=== PATIENT | female | born 1950 | race Caucasian/White ===

== ENCOUNTER 2018-03-24 08:22 | Day surgery (SDC) | payer MEDICARE, MEDICAID ==
[~2018-03-24 08:22] MED LIST: Lactated Ringers 1,000 ML IV SCH; Sodium Chloride 0.9% 5 ML Syringe FLUSH PRN
[2018-03-24] MEDS ORDERED: Gatifloxacin 0.5% Ophth Soln 2.5 ML Bot EYELF SCH (08:30)
[2018-03-24] MEDS: Cyclopentolate 1% Opth Soln 2 ML Bottle EYELF SCH ×3 (08:35→09:01)
[2018-03-24] MEDS: Phenylephrine 10% Ophth Soln 5 ML Bot EYELF SCH ×3 (08:42→09:06)
[2018-03-24] MEDS ORDERED: Water For Irrigation,Sterile 1,500 ML Container IRR ONE (10:06)
[2018-03-24] MEDS ORDERED: Balanced Salt Solution Ophth Irrig 15 ML Bottle EYELF ONE (10:07)
[2018-03-24] MEDS ORDERED: Carbachol 0.01% Intraocular 1.5 ML Vial EYELF ONE (10:07)
[2018-03-24] MEDS ORDERED: Balanced Salt Solution Plus Ophth Irrig 500 ML Bottle IOCULAR ONE (10:07)
[2018-03-24] MEDS ORDERED: Dexamethasone/Neomycin/Polymyxin B Ophth Oint 3.5 GM Tube EYELF ONE (10:07)
[2018-03-24] MEDS ORDERED: EPINEPHrine 1 MG/ML SDV ONE (10:07)
[2018-03-24] MEDS ORDERED: Lidocaine 1% 10 ML MDV INJECT ONE (10:08)
[2018-03-24] MEDS ORDERED: Lidocaine 2% with EPINEPHrine 1:100,000 20 ML MDV INJECT ONE (10:08)
[2018-03-24] MEDS ORDERED: Tetracaine HCl/PF 0.5% 4 ML Bottle EYEBOTH ONE (10:08)
[2018-03-24] MEDS ORDERED: Hyaluronate Sodium 1% 0.85 ML Syringe IOCULAR ONE (10:08)
--- NOTE | 2018-03-25 09:18 | OR ---
DATE OF SURGERY: 03/24/2018 SURGEON: Cleveland Ortiz MD PREOPERATIVE DIAGNOSIS: Cataract, left eye. POSTOPERATIVE DIAGNOSIS: Cataract, left eye. OPERATION PERFORMED: Phacoemulsification with posterior chamber lens insertion, left eye. HISTORY: The patient presents at this time with an increasing amount of difficulty seeing to read using the left eye. The left eye has a vision of 20/50. The left lens has a 2 to 3+ nuclear sclerosis and 1+ posterior subcapsular change. 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 FINDINGS: The patient was taken to the operating room where appropriate anesthesia, sedation and monitoring were provided. A retrobulbar block was given on the left side. The eye was massaged and was found to be appropriately soft. The eye and eyelids were then prepped and draped in the usual sterile manner. A lid speculum was placed. A micro sharp blade was used to enter the anterior chamber inside the limbus inferior-temporally. Xylocaine was irrigated into the eye at this site. Healon was irrigated into the eye through this site. Then using a 2.85 mm corneal blade an entry was made into the anterior chamber just inside the limbus temporally. Healon was again irrigated into the eye. Then using a cystitome, the anterior capsulorrhexis was created. The lens nucleus was hydrodissected using a 27 gauge cannula and balanced salt solution. The phacoemulsification unit was introduced through the temporal site and the Terence spatula through the inferior temporal site. In so doing, the lens nucleus was phacoemulsified. The cortical fragments of the lens were removed using the irrigation aspiration unit. The posterior capsule was polished. Healon was irrigated into the eye. The posterior chamber lens was inserted and rotated into position inside the capsular bag. The Healon was irrigated out of the eye. Miostat was irrigated into the eye and the pupil rounded nicely. A single interrupted 10-0 Nylon suture was placed through the temporal corneal incision site. Balanced salt solution was irrigated into the eye. The wound was tested and found to be tight. Maxitrol ointment was placed into the patient's left eye. The eyelids were closed and an eye patch and munson shield were placed. The patient left the operating room in good condition. /[id number]/MODL
== END 2018-03-24 11:15 | disposition home or self-care (01) ==
LOC: KA.SDS 08:22
PROVIDERS: ATTEND Ophthalmology
DX: H25.812 Combined forms of age-related cataract, left eye (principal); I10 Essential (primary) hypertension; E66.01 Morbid (severe) obesity due to excess calories; E03.9 Hypothyroidism, unspecified; G47.33 Obstructive sleep apnea (adult) (pediatric); Z79.899 Other long term (current) drug therapy; Z87.891 Personal history of nicotine dependence
CPT/HCPCS: 00142; 66984; A9270; C1780; J0171; J7120

== ENCOUNTER 2018-08-06 09:48 | Emergency (ER) | payer MEDICARE, MEDICAID ==
[2018-08-06] MEDS ORDERED: Ondansetron 4 MG Tab.DIS PO ONE (10:42)
[2018-08-06] MEDS ORDERED: Albuterol/Ipratropium 3.0-0.5 MG/3 ML Neb Soln NEB ONE (10:42)
--- NOTE | 2018-08-06 10:42 | EDM.PDOC ---
ED HPI GENERAL MEDICAL PROBLEM - General Chief Complaint: General Stated Complaint: FLU LIKE SYMPTOMS Time Seen by Provider: 08/06/18 10:10 Source of Information: Reports: Patient History Limitations: Reports: No Limitations - History of Present Illness INITIAL COMMENTS - FREE TEXT/NARRATIVE: 68 YO WF presents to ER complaining of 6 day history of nasal congestion with nonproductive cough. Pt reports this am she woke with some mild shortness of breath which prompted her to come to ER for evaluation. Pt also reports feeling chills with nausea and decreased appetite over the same time frame. Pt denies any documented fever, but states she has felt warm. Pt has been taking mucinex without much relief. Pt denies chest pain, dizziness or abdominal pain/ vomiting. Onset Date: 07/31/18 Duration: Day(s): (6) Location: Reports: Generalized Severity: Mild Improves with: Reports: None Worsens with: Reports: None Associated Symptoms: Reports: Cough, Fever/Chills, Nausea/Vomiting, Shortness of Breath. Denies: Chest Pain - Related Data Allergies Allergy/AdvReac Type Severity Reaction Status Date / Time No Known Drug Allergies Allergy Other Verified 03/24/18 07:59 Home Meds: Home Meds ALPRAZolam [Xanax] 0.25 - 0.5 mg PO QID PRN 02/16/18 [History] Ascorbate Calcium [Vitamin C] 500 mg PO DAILY 02/16/18 [History] Aspirin [Adult Low Dose Aspirin EC] 81 mg PO DAILY 02/16/18 [History] Calcium Carbonate/Vitamin D3 [Calcium Carbonate/Vitamin D 600 MG-200 Unit] 1 tab PO DAILY 02/16/18 [History] FLUoxetine HCl [Prozac] 60 mg PO DAILY 02/16/18 [History] Levothyroxine 112 mcg PO ACBREAKFAST 02/16/18 [History] Lisinopril/Hydrochlorothiazide [Lisinopril-Hctz 20-25 mg Tab] 1 tab PO DAILY 12/29 [History] Multivitamin with Minerals [Multiple Vitamin] 1 tab PO DAILY 02/16/18 [History] Naproxen 500 mg PO BID 02/16/18 [History] Triamcinolone Acetonide [Triamcinolone Acetonide 0.1% Crm] 1 applic TOP BID PRN 02/16/18 [History] atorvaSTATin [Lipitor] 40 mg PO DAILY 02/16/18 [History] Albuterol [Ventolin HFA] 1 puff INH Q4H #1 puff 08/06/18 [Rx] Azithromycin [Zithromax] 250 mg PO DAILY #6 tab 08/06/18 [Rx] Cetirizine [ZyrTEC] 10 mg PO DAILY #30 tab 08/06/18 [Rx] Ondansetron [Zofran ODT] 4 mg PO Q6H PRN #10 tab.dis 08/06/18 [Rx] Past Medical History HEENT History: Reports: Cataract, Impaired Vision Cardiovascular History: Reports: High Cholesterol, Hypertension Respiratory History: Reports: Other (See Below) Other Respiratory History: CPAP Gastrointestinal History: Reports: Diverticulosis Genitourinary History: Reports: None 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: Musculoskeletal History: Reports: Arthritis Neurological History: Reports: None Psychiatric History: Reports: Depression Endocrine/Metabolic History: Reports: Hypothyroidism, Obesity/BMI 30+ Hematologic History: Reports: None Immunologic History: Reports: None Oncologic (Cancer) History: Reports: None Dermatologic History: Reports: None - Infectious Disease History Infectious Disease History: Reports: Chicken Pox, Hepatitis C, Measles, Mumps Other Infectious Disease History: Hepatitis - Past Surgical History HEENT Surgical History: Reports: Cataract Surgery, Tonsillectomy Cardiovascular Surgical History: Reports: None GI Surgical History: Reports: Colonoscopy Endocrine Surgical History: Reports: None Musculoskeletal Surgical History: Reports: None Social & Family History - Family History Family Medical History: Noncontributory - Tobacco Use Smoking Status *Q: Former Smoker Used Tobacco, but Quit: Yes Month/Year Tobacco Last Used: 1981 - Caffeine Use Caffeine Use: Reports: Coffee, Soda Other Caffeine Use: DIET - Recreational Drug Use Recreational Drug Use: No ED ROS GENERAL - Review of Systems Review Of Systems: See Below Constitutional: Reports: Chills, Malaise, Decreased Appetite HEENT: Reports: Rhinitis Respiratory: Reports: Shortness of Breath, Wheezing, Cough Cardiovascular: Reports: No Symptoms Endocrine: Reports: No Symptoms GI/Abdominal: Reports: Decreased Appetite, Nausea. Denies: Abdominal Pain, Black Stool, Bloody Stool, Diarrhea, Vomiting : Reports: No Symptoms Musculoskeletal: Reports: No Symptoms Skin: Reports: No Symptoms Neurological: Reports: No Symptoms Psychiatric: Reports: No Symptoms Hematologic/Lymphatic: Reports: No Symptoms Immunologic: Reports: No Symptoms ED EXAM, GENERAL - Physical Exam Exam: See Below Exam Limited By: No Limitations General Appearance: Alert, WD/WN, No Apparent Distress Eye Exam: Bilateral Eye: PERRL Ears: Normal External Exam, Normal Canal, Hearing Grossly Normal, Normal TMs Nose: Normal Mucosa, No Blood, Clear Rhinorrhea Throat/Mouth: Normal Inspection, Normal Lips, Normal Teeth, Normal Gums, Normal Oropharynx, Normal Voice, No Airway Compromise Head: Atraumatic, Normocephalic Neck: Normal Inspection, Supple, Non-Tender, Full Range of Motion Respiratory/Chest: No Respiratory Distress, No Accessory Muscle Use, Chest Non- Tender, Rhonchi, Wheezing Cardiovascular: Normal Peripheral Pulses, Regular Rate, Rhythm, No Edema, No Gallop, No JVD, No Murmur, No Rub GI/Abdominal: Normal Bowel Sounds, Soft, Non-Tender, No Organomegaly, No Distention, No Abnormal Bruit, No Mass Back Exam: Normal Inspection, Full Range of Motion, NT Extremities: Normal Inspection, Normal Range of Motion, Non-Tender, Normal Capillary Refill, No Pedal Edema Neurological: Alert, Oriented, CN II-XII Intact, Normal Cognition, Normal Gait, Normal Reflexes, No Motor/Sensory Deficits Psychiatric: Normal Affect, Normal Mood Skin Exam: Warm, Dry, Intact, Normal Color, No Rash Lymphatic: No Adenopathy Course - Vital Signs Last Recorded V/S: Last Vital Signs Temp 36.6 C 08/06/18 10:39 Pulse 70 08/06/18 09:57 Resp 16 08/06/18 09:57 BP 114/51 L 08/06/18 10:39 Pulse Ox 99 08/06/18 09:57 - Orders/Labs/Meds Orders: Active Orders 24 hr Category Date Time Status RT Aerosol Therapy [RC] ASDIRECTED Care 08/06/18 10:43 Ordered Meds: Medications Discontinued Medications Generic Name Dose Route Start Last Admin Trade Name Freq PRN Reason Stop Dose Admin Albuterol/Ipratropium 3 ml 08/06/18 10:42 Duoneb 3.0-0.5 Mg/3 Ml NEB 08/06/18 10:43 ONETIME ONE Ondansetron HCl 4 mg 08/06/18 10:42 Zofran Odt PO 08/06/18 10:43 ONETIME ONE - Radiology Interpretation Free Text/Narrative:: CXR- NAD Departure - Departure Time of Disposition: 10:55 Disposition: Home, Self-Care 01 Condition: Fair Clinical Impression: Acute bronchitis Qualifiers: Bronchitis organism: unspecified organism Qualified Code(s): J20.9 - Acute bronchitis, unspecified - Discharge Information Prescriptions: Albuterol [Ventolin HFA] 1 puff INH Q4H #1 puff Azithromycin [Zithromax] 250 mg PO DAILY #6 tab Cetirizine [ZyrTEC] 10 mg PO DAILY #30 tab Ondansetron [Zofran ODT] 4 mg PO Q6H PRN #10 tab.dis PRN Reason: Nausea/Vomiting Instructions: Acute Bronchitis, Adult, [id number] Referrals: PCP,Not In Area [Primary Care Provider] - Kamla Fermin PA-C [Physician [employer] Interface Developer] - Forms: ED Department Discharge - My Orders Last 24 Hours: My Active Orders 08/06/18 10:43 RT Aerosol Therapy [RC] ASDIRECTED - Assessment/Plan Last 24 Hours: My Active Orders 08/06/18 10:43 RT Aerosol Therapy [RC] ASDIRECTED Assessment:: 1. acute bronchitis 2. viral syndrome 3. nausea Plan: 1. discharge home 2. z-pack 3. albuterol Q4 and PRN 4. zyrtec 10mg PO QD 5. zofran 4mg ODT #10 Q8 PRN 6. follow up in clinic in 2 days for recheck 7. return to ER for worsening symptoms
--- NOTE | 2018-08-06 10:44 | CR ---
[id number] RAD/RAD Chest PA And Lateral EXAM: RAD Chest PA And Lateral CLINICAL DATA: COUGH. SHORTNESS OF BREATH. COMPARISON: NO PREVIOUS SIMILAR EXAM IS AVAILABLE. FINDINGS: The lungs are clear. The cardiomediastinal contour is moderately prominent. The regional bones and soft tissues are unremarkable. IMPRESSION: NO ACUTE PROCESS. Morales Barrett MD 08/06/18 1040 Thank you for allowing us to participate in the care of your patient.
== END 2018-08-06 11:10 | disposition home or self-care (01) ==
LOC: KA.ED 09:48
DX: J20.9 Acute bronchitis, unspecified (principal); B34.9 Viral infection, unspecified; E78.00 Pure hypercholesterolemia, unspecified; I10 Essential (primary) hypertension; F32.9 Major depressive disorder, single episode, unspecified; E03.9 Hypothyroidism, unspecified; Z87.891 Personal history of nicotine dependence; Z79.899 Other long term (current) drug therapy; Z79.82 Long term (current) use of aspirin
CPT/HCPCS: 71046; 87804; 94640; 99282; 99284; A9270-GY; J7620-GY